=== PATIENT | male | born 1970 | race Caucasian/White ===

== ENCOUNTER 2017-10-10 10:44 | Emergency (ER) | payer OTHER, SELFPAY ==
[2017-10-10 12:10] VITALS: BP 159/83; PULSE 71; RESP 22; TEMP 36.8; O2SAT 97; BMI 28.0
--- NOTE | 2017-10-10 12:27 | HMH.EDUTC ---
[facility] [place] Disposition Clinical Impression: Toe pain Qualifiers: Laterality: right Qualified Code(s): M79.674 - Pain in right toe(s) Disposition: Home, Self-Care Condition on Discharge: Good Additional Instructions: Go straight to Dr Moore office as she will see you now Follow up with family doctor REturn if needed Referrals: Destini Moore DPM [Physician] - Time of Disposition: 13:06 Medical Decision Making Vital Signs: 10/10/17 12:10 Temperature 98.2 F Temperature Source Temporal Artery Scan Pulse Rate [Right Radial] 71 Respiratory Rate 22 Blood Pressure [Right Arm] 159/83 Blood Pressure Mean [Right Arm] 108 Blood Pressure Source [Right Arm] Automatic Cuff Blood Pressure Position [Right Arm] Sitting 02 Sat by Pulse Oximetry 97 Oxygen Delivery Method Room Air Orders (Tests/Meds): ORDERS Category Date Time Status XR foot wt bearing RT 2V Stat Exams 10/10/17 12:34 Taken - Radiology Data #1 Image(s): Foot/Toes Image Reviewed: Yes I reviewed the patient's radiology image - Physician Consults Time: 12:30 Reason -: Podiatry Eval/Care Comment/Response: Called Dr Moore office awaiting to hear from her if she can see patient for swollen, red second toe on right foot, Advised to obtain foot xray weight bearing and they would call back if they could see him Additional Consult: Dr Moore office called back at 1pm advised for patient to come to office - Sam Inquiry Pt receiving controlled substance: No Sam was queried for this patient: No [facility] HPI - General Stated complaint: 2nd toe on right foot,pain no ao Mode of Arrival: Family Vehicle Source of Information: Patient Limitations: No Limitations Description of Symptoms (Recalled from Triage Doc. by RN): PT STATES THAT HIS SECOND TOE ON HIS RIGHT FOOT HAS BEEN SWOLLEN AND PAINFUL FOR 1 WEEK. PT BROKE THE TOE 2 YRS AGO. HEENT Symptoms (Recalled from RN notes): No Resp Symptoms (Recalled from RN notes): No Skin Symptoms (Recalled from RN notes): No MS Symptoms (Recalled from RN notes): Yes (SECOND TOE ON RIGHT FOOT SWOLLEN AND PAINFUL) Functional Status (Recalled from RN notes): NA - History of Present Illness Provider Complaint: Patient state that he had broken the toe about 2 years ago and the other day he trimmed his toe nails and ever since he has been having redness and swelling ever since and pain when he tries to put on a sock or shoe State that he doesn't recall doing anything to injure the toe or if he may have an infection - Related Data Allergies Allergy/AdvReac Type Severity Reaction Status Date / Time No Known Allergies Allergy Verified 10/10/17 11:20 - Worker's Comp Is this a Worker's Comp case?: No [facility] History I have reviewed the patient's past medical history: Yes Medical History: Denies:: Cancer, Diabetes Mellitus Type 1, Diabetes Mellitus Type 2, MRSA Amputation: No Fractures: No - *Social History Smoking Status: Current every day smoker Tobacco Type: cigarettes, e-cigarettes Alcohol Intake: never - Psychiatric History Expresses thoughts of harming self/others: None Suicide Plan Description: No Plan ROS Obtained: Yes All systems reviewed & no additional complaints Physical Exam - General General appearance: alert, in no apparent distress - ENT ENT exam: Present: normal exam, normal oropharynx, mucous membranes moist, TM's normal bilaterally, normal external ear exam - Respiratory Respiratory exam: Present: normal lung sounds bilaterally. Absent: respiratory distress - Cardiovascular Cardiovascular exam: Present: regular rate, normal rhythm. Absent: JVD - Extremities Exam Extremities exam: Present: tenderness, normal capillary refill, other (swelling, redness, tenderness noted in second toe right foot) - Neurological Exam Neurological exam: Present: alert, oriented X3
--- NOTE | 2017-10-10 12:30 | ED_ITS ---
[facility] [place] Clinical Impression: Toe pain Qualifiers: Laterality: right Qualified Code(s): M79.674 - Pain in right toe(s) Disposition: Home, Self-Care Condition on Discharge: Good Additional Instructions: Go straight to Dr Moore office as she will see you now Follow up with family doctor REturn if needed Referrals: Destini Moore DPM [Physician] - Time of Disposition: 13:06 Medical Decision Making Vital Signs: 10/10/17 12:10 Temperature 98.2 F Temperature Source Temporal Artery Scan Pulse Rate [Right Radial] 71 Respiratory Rate 22 Blood Pressure [Right Arm] 159/83 Blood Pressure Mean [Right Arm] 108 Blood Pressure Source [Right Arm] Automatic Cuff Blood Pressure Position [Right Arm] Sitting 02 Sat by Pulse Oximetry 97 Oxygen Delivery Method Room Air Orders (Tests/Meds): ORDERS Category Date Time Status XR foot wt bearing RT 2V Stat Exams 10/10/17 12:34 Taken - Radiology Data #1 Image(s): Foot/Toes Image Reviewed: Yes I reviewed the patient's radiology image - Physician Consults Time: 12:30 Reason -: Podiatry Eval/Care Comment/Response: Called Dr Moore office awaiting to hear from her if she can see patient for swollen, red second toe on right foot, Advised to obtain foot xray weight bearing and they would call back if they could see him Additional Consult: Dr Moore office called back at 1pm advised for patient to come to office - Sam Inquiry Pt receiving controlled substance: No Sam was queried for this patient: No [facility] [place]PI - General Stated complaint: 2nd toe on right foot,pain no ao Mode of Arrival: Family Vehicle Source of Information: Patient Limitations: No Limitations Description of Symptoms (Recalled from Triage Doc. by RN): PT STATES THAT HIS SECOND TOE ON HIS RIGHT FOOT HAS BEEN SWOLLEN AND PAINFUL FOR 1 WEEK. PT BROKE THE TOE 2 YRS AGO. HEENT Symptoms (Recalled from RN notes): No Resp Symptoms (Recalled from RN notes): No Skin Symptoms (Recalled from RN notes): No MS Symptoms (Recalled from RN notes): Yes (SECOND TOE ON RIGHT FOOT SWOLLEN AND PAINFUL) Functional Status (Recalled from RN notes): NA - History of Present Illness Provider Complaint: Patient state that he had broken the toe about 2 years ago and the other day he trimmed his toe nails and ever since he has been having redness and swelling ever since and pain when he tries to put on a sock or shoe State that he doesn't recall doing anything to injure the toe or if he may have an infection - Related Data Allergies Allergy/AdvReac Type Severity Reaction Status Date / Time No Known Allergies Allergy Verified 10/10/17 11:20 - Worker's Comp Is this a Worker's Comp case?: No [facility] History I have reviewed the patient's past medical history: Yes Medical History: Denies:: Cancer, Diabetes Mellitus Type 1, Diabetes Mellitus Type 2, MRSA Amputation: No Fractures: No - *Social History Smoking Status: Current every day smoker Tobacco Type: cigarettes, e-cigarettes Alcohol Intake: never - Psychiatric History Expresses thoughts of harming self/others: None Suicide Plan Description: No Plan ROS Obtained: Yes All systems reviewed & no additional complaints Physical Exam - General General appearance: alert, in no apparent distress - ENT ENT exam: Present: normal exam, normal oroph
--- NOTE | 2017-10-10 12:34 | XR_ITS ---
XR foot wt bearing RT 2V Ordering Physician: Solitario Rojas MD Patient Age: 46 years: Male HISTORY: ITS.REASON: swelling second toe The patient TECHNIQUE: 3 views right foot weightbearing AP oblique and crosstable lateral COMPARISON :None FINDINGS No fracture nor subluxation nor dislocation . Normal relationships. Bones are well mineralized and joint spaces are well-maintained with no erosions. Adequate plantar arch. Very minimal spurring at insertion of Achilles tendon Attention directed second toe reveals no fracture or foreign body or lesion here on the current radiograph there is mild soft tissue swelling noted. IMPRESSION: =- No fracture nor dislocation. Specifically note that Osseous structures second toe are intact. Mild soft tissue swelling second toe. No radiopaque foreign body.
== END 2017-10-10 13:09 | disposition home or self-care (01) ==
PROVIDERS: Emergency Provider Emergency Medicine
DX: M79.674 Pain in right toe(s) (principal); F17.210 Nicotine dependence, cigarettes, uncomplicated
CPT/HCPCS: 73620; 99202; 99282

== ENCOUNTER → 2019-01-01 12:14 | Outpatient (CLI) | payer OTHER, SELFPAY ==
[2019-01-01 12:29] LABS: Basophils # 0.1 K/mm3 (0-0.2); Basophils % 0.5 % (0.1-2.0); Eosinophils # 0.1 K/mm3 (0.0-0.4); Eosinophils % 1.5 % (0.1-12.0); Hematocrit 41.3 % (42.0-52.0); Hemoglobin 14.1 g/dL (14.1-18.0); Lymphocytes # 2.6 K/mm3 (0.7-4.5); Lymphocytes % 26.3 % (10-50); Mean Corpuscular HGB Conc 34.1 g/dL (31.8-35.4); Mean Corpuscular Hemoglobin 30.4 pg (27.0-31.2); Mean Corpuscular Volume 89.2 fl (80-94); Mean Platelet Volume 8.4 fl (7.4-10.4); Monocytes # 0.8 K/mm3 (0.1-1.0); Monocytes % 7.8 % (1.7-9.3); Neutrophils # 6.2 K/mm3 (1.8-7.8); Platelet Count 211 K/mm3 (142-424); Red Blood Count 4.62 M/mm3 (4.60-6.20); Red Cell Distribution Width 13.5 % (11.5-17.5); White Blood Count 9.7 K/mm3 (4.8-10.8)
--- NOTE | 2019-01-01 12:36 | XR_ITS ---
XR chest 2V HISTORY: ITS.REASON: TOBACCO USE ORDERING PHYSICIAN: Lalita Barraza MD PATIENT AGE: 48 years COMPARISON: None FINDINGS: Unremarkable cardiovascular structures. There are faint interstitial changes which may related to smoking-related lung disease/COPD. In the left upper lobe there is a small parenchymal irregular opacity measuring 13 x 8 mm. This could be due to an area of parenchymal scarring or developing nodule. There are no previous studies available for comparison. Chest CT with contrast may be of further value. No acute bony findings. There is overall increased density of the right lung compared to the left. This however is felt to be technical in nature. IMPRESSION: COPD/smoking related lung disease with possible developing nodule in the left upper lobe which may be better evaluated with CT
[2019-01-01 12:37] LABS: INR 0.94 (0.9-1.1); Prothrombin Time 9.7 seconds (9.4-11.8)
[2019-01-01 13:18] LABS: Alanine Aminotransferase 24 U/L (12-78); Albumin Level 2.9 gm/dL (3.4-5.0); Albumin/Globulin Ratio 0.9 (1.1-1.8); Alkaline Phosphatase 106 U/L (46-116); Anion Gap 11.3 mEq/L (5-15); Aspartate Amino Transferase 21 U/L (15-37); Bilirubin,Total 0.3 mg/dL (0.2-1.0); Blood Urea Nitrogen 13 mg/dL (7-18); Calcium 8.5 mg/dL (8.5-10.1); Carbon Dioxide 30 mmol/L (21.0-32.0); Chloride 105 mmol/L (98-107); Creatinine,Serum 1.01 mg/dL (0.70-1.30); Estimated Glomerular Filt Rate 78 ml/min (>60); GFR (African American) 95 ML/MIN (>60); Globulin 3.1 gm/dl (1.3-3.2); Glucose 93 mg/dL (74-106); Potassium 4.3 mmoL/L (3.5-5.1); Sodium 142 mmol/L (136-145)
--- NOTE | 2019-01-01 14:04 | CT_ITS ---
CT knee LT wo con INDICATION: Pain following injury, evaluate tibial plateau fracture with 3-D loop ITS.REASON: without contrast ORDERING PHYSICIAN: Lalita Barraza MD PATIENT AGE: 48 years COMPARISON: None TECHNIQUE: Axial images are obtained without contrast. Sagittal and coronal reformatted images are reviewed as well. All CT scans at the facility use one or more dose reduction, viz: automated exposure control, ma/kV adjustment per patient size (including targeted exams where dose is matched to indication, i.e. head), or iterative reconstruction technique. FINDINGS: There is a comminuted and depressed lateral tibial plateau fracture. There is a fragment which measures approximately 2 x 2 centimeters which is depressed into the proximal aspect of the tibia laterally. This fragment is depressed by approximately 17 mm. The lateral tibial plateau fracture has an oblique course anteriorly. There is some comminution of fracture fragments posteriorly. The posterior aspect of the fracture extends into the tibiofibular articulation. There is diffuse soft tissue swelling about the knee with a suprapatellar effusion noted. MRI needed to determine the integrity of the ligaments and menisci. IMPRESSION: 1. Depressed and comminuted lateral tibial plateau fracture as described above with soft tissue swelling and knee joint effusion
== END ==
PROVIDERS: Visit Provider Orthopaedic Surgery
DX: Z01.818 Encounter for other preprocedural examination (principal); S82.143A Displaced bicondylar fracture of unspecified tibia, initial encounter for closed fracture
CPT/HCPCS: 36415; 71046; 73700; 80053; 85025; 85610; 93005

== ENCOUNTER → 2019-01-05 10:52 | Outpatient (CLI) | payer OTHER, SELFPAY ==
--- NOTE | 2019-01-05 11:23 | CT_ITS ---
CT chest wo/w con HISTORY: Follow-up abnormal chest, solitary pulmonary nodule, tobacco use with abnormal chest [ ITS.REASON: lung nodule ORDERING PHYSICIAN: Lalita Barraza MD PATIENT AGE: 48 years COMPARISON: 01/01/2019 Technique: Axial images obtained without and following the administration of 75 mL of Optiray 350 . Sagittal, and coronal reformatted images are also generated and reviewed. All CT scans at the facility use one or more dose reduction, viz: automated exposure control, ma/kV adjustment per patient size (including targeted exams where dose is matched to indication, i.e. head), or iterative reconstruction technique. FINDINGS: Unenhanced images demonstrate coronary artery calcifications. There are scattered calcified lymph nodes within the mediastinum and right hilum. No mediastinal or hilar mass or adenopathy is evident. No evidence of aortic aneurysm. Normal heart size without evidence of pericardial effusion. There are paraseptal and centrilobular emphysematous changes. There is a calcified nodule within the left upper lobe anteriorly which corresponds to the radiographic abnormality. There is a 3 mm noncalcified nodule in the right upper lobe anteriorly series 3 #47 there are fibrotic changes in the lung bases. Calcified nodules are noted in the right lower lobe posteriorly. There is a 6 x 3 mm noncalcified nodule in the right lower lobe series 3 #49. No effusions or infiltrates. There are few scattered small axillary lymph nodes. No acute bony findings. There is mild bilateral mastoid IMPRESSION: 1. Radiographic abnormality corresponds to a calcified nodule consistent with a benign granuloma. No further follow-up needed for this nodule. 2. There are 2 noncalcified nodules on the right one in the upper lobe at 3 mm and one in the lower lobe 6 x 3 mm. Suggest 12 month follow-up this patient with smoking history regarding these nodules. 3. Centrilobular paraseptal emphysema. Coronary artery calcifications are also present
--- NOTE | 2019-01-05 11:58 | HMH.ITSHM ---
Current Home Medications as stated by this patient Efrain Norma Paul or indirect sales representative. []PERCOCET
== END ==
PROVIDERS: Visit Provider Orthopaedic Surgery
DX: R91.1 Solitary pulmonary nodule (principal)
CPT/HCPCS: 71270; Q9967

== ENCOUNTER 2019-01-10 13:00 | Inpatient (IN) ==
[2019-01-10 15:35] LABS: Basophils # 0.1 K/mm3 (0-0.2); Basophils % 0.5 % (0.1-2.0); Eosinophils # 0.1 K/mm3 (0.0-0.4); Eosinophils % 0.8 % (0.1-12.0); Hematocrit 36.7 % (42.0-52.0); Hemoglobin 12.5 g/dL (14.1-18.0); Lymphocytes # 2.1 K/mm3 (0.7-4.5); Lymphocytes % 15.7 % (10-50); Mean Corpuscular HGB Conc 34.2 g/dL (31.8-35.4); Mean Corpuscular Hemoglobin 30.3 pg (27.0-31.2); Mean Corpuscular Volume 88.7 fl (80-94); Monocytes # 1.2 K/mm3 (0.1-1.0); Monocytes % 8.8 % (1.7-9.3); Neutrophils # 9.9 K/mm3 (1.8-7.8); Neutrophils % 74.3 % (37.0-80.0); Platelet Count 423 K/mm3 (142-424); Red Blood Count 4.13 M/mm3 (4.60-6.20); White Blood Count 13.4 K/mm3 (4.8-10.8)
[2019-01-10 15:53] LABS: Albumin/Globulin Ratio 0.4 (1.1-1.8); Anion Gap 11.3 mEq/L (5-15); Bilirubin,Total 0.3 mg/dL (0.2-1.0); Calcium 8.8 mg/dL (8.5-10.1); Potassium 4.3 mmoL/L (3.5-5.1)
[2019-01-10 16:00] LABS: C-Reactive Protein 13.9 mg/L (0.0-0.9)
--- NOTE | 2019-01-10 16:11 | Pharmacy Consult Notes ---
[facility] Pharmacy VTE Monitoring - Patient Demographics Admission date: 01/10/19 Report Date: 01/10/19 Time: 16:06 Allergies/Adverse Reactions: Patient Allergies No Known Allergies Allergy (Verified 01/10/19 14:27) Height: 1.75 m Weight: 88.167 kg - VTE Risk Labs: VTE Related Lab Results Hgb 12.5 g/dL (14.1-18.0) L 01/10/19 15:25 Hct 36.7 % (42.0-52.0) L 01/10/19 15:25 Plt Count 423 K/mm3 (142-424) 01/10/19 15:25 BUN 15 mg/dL (7-18) 01/10/19 15:25 Creatinine 1.03 mg/dL (0.70-1.30) 01/10/19 15:25 Estimated Creat Clear 107 mL/min (50-200) 01/10/19 15:25 Was VTE Risk Assessment Performed: Yes Clinical Trial Participant: No - Prophylaxis VTE Prophylaxis Ordered?: Yes Types of VTE Prophylaxis: IPCS Knee High
--- NOTE | 2019-01-10 16:22 | Pharmacy Consult Notes ---
- Pharmacy Consult Date: 01/10/19 Time: 16:19 Referring provider: ALEXI Reason for Consult:: VANCOMYCIN DOSING AND FOLLOWUP Allergies and ADEs:: Allergies Allergy/AdvReac Type Severity Reaction Status Date / Time No Known Allergies Allergy Verified 01/10/19 14:27 Home Medications:: Home Medications Medication Instructions Recorded Confirmed Type oxycodone 5 mg capsule 5 mg PO Q6HP PRN 01/05/19 01/10/19 History sulfamethoxazole 800 1 tab PO DAILY 7 Days #7 tab 01/05/19 01/10/19 Rx mg-trimethoprim 160 mg tablet Height: 1.75 m Weight: 88.167 kg Laboratory Results:: Laboratory Results - last 24 hr 01/10/19 15:25: WBC 13.4 H, RBC 4.13 L, Hgb 12.5 L, Hct 36.7 L, MCV 88.7, MCH 30.3, MCHC 34.2, RDW 13.0, Plt Count 423, MPV 8.0, Neut % (Auto) 74.3, Lymph % (Auto) 15.7, Gilchrist % (Auto) 8.8, Eos % (Auto) 0.8, Baso % (Auto) 0.5, Neut # (Auto) 9.9 H, Lymph # (Auto) 2.1, Gilchrist # (Auto) 1.2 H, Eos # (Auto) 0.1, Baso # (Auto) 0.1 01/10/19 15:25: Sodium 129 L, Potassium 4.3, Chloride 94 L, Carbon Dioxide 28, Anion Gap 11.3, BUN 15, Creatinine 1.03, Estimated Creat Clear 107, Estimated GFR 76, Est GFR ( Amer) 92, Glucose 102, Calcium 8.8, Total Bilirubin 0.3, AST 129 H, ALT 117 H, Alkaline Phosphatase 134 H, C-Reactive Protein 13.9 H , Total Protein 7.0, Albumin 2.0 L, Globulin 5.0 H, Albumin/Globulin Ratio 0.4 L 01/10/19 15:25: ESR > 120 H Medical History: Denies:: Asthma, Cancer, Chronic Obstructive Pulmonary Disease (COPD), Cerebrovascular Accident, Diabetes Mellitus Type 1, Diabetes Mellitus Type 2, Gastroesophageal Reflux Disease(GERD), Hyperlipidemia, Hypertension, Internal Pacemaker, Kidney Stones, MRSA, Myocardial Infarction, Renal Disease, Renal Insufficiency, Seizures Assessment and Plan - Assessment and plan all Dx Assessment and Plan for all problems:: PT ADMITTED FOR TREATMENT OF POSSIBLE POST OP SURGICAL SITE INFECTION WITH IV A NTIBIOTICS. PT STARTED IN ZOSYN 2.25GM AND VANCOMYCIN EMPIRICALLY. WILL START VANCOMYCIN 1750MG (20MG/KG) EVERY 12 HOURS. WILL FOLLOW DAILY AND ADJUST NECESSARY. THANK YOU.
--- NOTE | 2019-01-10 21:44 | History & Physical Report ---
*Admission Date: 01/10/19 *Chief complaint: LLE pain + erythema *History of present illness: 48yo M 1 week s/p ORIF L tibial plateau fracture admitted from clinic this afternoon with increasing erythema around the surgical site despite being on oral Bactrim for the last 5-6 days. He denies fevers or chills at home, no drainage from the incision, but has a foot drop present since surgery. Sensation intact but quality diminished across the dorsum of the foot. He is a heavy smoker, 2-2.5 ppd. Effusion present in the knee, which was aspirated in clinic and sent for cell count, gram stain and culture; aspiration site was medial, far from the surgical incision and prepped with chlorhexidine. [facility] History I have reviewed the patient's past medical history: Yes Medical History: Denies:: Asthma, Cancer, Chronic Obstructive Pulmonary Disease (COPD), Cerebrovascular Accident, Diabetes Mellitus Type 1, Diabetes Mellitus Type 2, Gastroesophageal Reflux Disease(GERD), Hyperlipidemia, Hypertension, Internal Pacemaker, Kidney Stones, MRSA, Myocardial Infarction, Renal Disease, Renal Insufficiency, Seizures *Have you ever received a pneumonia vaccine?: No *Have you received a flu vaccine this season?: No Other Medical History: Denies: Arthritis, Blood Transfusion Reaction Laterality Cases: Left: Other Other Surgeries: Yes: No Previous Surgery. No: Pacemaker Amputation: No Fractures: Yes (TOE) - *Social History Smoking Status: Current every day smoker Tobacco Type: cigarettes # Packs/Day (cigarettes): 2 Alcohol Intake: former Alcohol Intake Frequency:: 0-2 drinks per day Substance Use Type: denies use *Occupational Status:: employed Housing: house Household Members: none *Travel in the last 8 weeks: None - Psychiatric History Expresses thoughts of harming self/others: None Suicide Plan Description: No Plan Family Hx:: No significant family history Review of Systems - Review of Systems Review of systems:: pertinent systems reviewed and negative unless documented below Meds Home Medications Medication Instructions Recorded Confirmed Type oxycodone 5 mg capsule 5 mg PO Q6HP PRN 01/05/19 01/10/19 History sulfamethoxazole 800 1 tab PO DAILY 7 Days #7 tab 01/05/19 01/10/19 Rx mg-trimethoprim 160 mg tablet Allergies Allergy/AdvReac Type Severity Reaction Status Date / Time No Known Allergies Allergy Verified 01/10/19 14:27 Exam Vital signs and Labs for Last 24 Hours: Temp Pulse Resp BP Pulse Ox 98.3 F 86 18 123/72 97 01/10/19 20:00 01/10/19 20:00 01/10/19 20:00 01/10/19 20:00 01/10/19 20:00 Laboratory Results - last 24 hr 01/10/19 15:25: WBC 13.4 H, RBC 4.13 L, Hgb 12.5 L, Hct 36.7 L, MCV 88.7, MCH 30.3, MCHC 34.2, RDW 13.0, Plt Count 423, MPV 8.0, Neut % (Auto) 74.3, Lymph % (Auto) 15.7, Carver % (Auto) 8.8, Eos % (Auto) 0.8, Baso % (Auto) 0.5, Neut # (Auto) 9.9 H, Lymph # (Auto) 2.1, Carver # (Auto) 1.2 H, Eos # (Auto) 0.1, Baso # (Auto) 0.1 01/10/19 15:25: Sodium 129 L, Potassium 4.3, Chloride 94 L, Carbon Dioxide 28, Anion Gap 11.3, BUN 15, Creatinine 1.03, Estimated Creat Clear 107, Estimated GFR 76, Est GFR ( Amer) 92, Glucose 102, Calcium 8.8, Total Bilirubin 0.3, AST 129 H, ALT 117 H, Alkaline Phosphatase 134 H, C-Reactive Protein 13.9 H , Total Protein 7.0, Albumin 2.0 L, Globulin 5.0 H, Albumin/Globulin Ratio 0.4 L 01/10/19 15:25: ESR > 120 H I & O for Last 24 hours: Intake & Output 01/08/19 01/09/19 01/10/19 01/11/19 11:59 11:59 11:59 11:59 Intake Total 785 / 785 Output Total 550 / 550 Balance 235 / 235 Weight 194 lb 6 oz Microbiology Reports for the Last 24 Hours: Microbiology 01/10/19 Unknown Synovial Fluid Gram Stain - Final - *Routine Extremities Exam Comments: L knee with laterally based incision s/p ORIF tibial plateau incision with increasing erythema around margin, no wound necrosis no active drainage but scant yellow fluid on dressing no palpable fluctuance, no apparent fluid collections near the surgical site mild effusion L knee mild erythema over anterior ankle, non-tender persistent foot drop LLE; intact plantar flexion with 5/5 strength sensation intact but quality diminished across dorsum of the L foot palpable pedal pulses LLE, foot warm Results - Labs Result Diagrams: 01/10/19 15:25 01/10/19 15:25 Labs: Abnormal lab results 01/10/19 01/10/19 01/10/19 Range/Units 15:25 15:25 15:25 WBC 13.4 H (4.8-10.8) K/mm3 RBC 4.13 L (4.60-6.20) M/mm3 Hgb 12.5 L (14.1-18.0) g/dL Hct 36.7 L (42.0-52.0) % Neut # (Auto) 9.9 H (1.8-7.8) K/mm3 Carver # (Auto) 1.2 H (0.1-1.0) K/mm3 ESR > 120 H (0-15) mm/hr Sodium 129 L (136-145) mmol/L Chloride 94 L (98-107) mmol/L AST 129 H (15-37) U/L ALT 117 H (12-78) U/L Alkaline Phosphatase 134 H (46-116) U/L C-Reactive Protein 13.9 H (0.0-0.9) mg/L Albumin 2.0 L (3.4-5.0) gm/dL Globulin 5.0 H (1.3-3.2) gm/dl Albumin/Globulin Ratio 0.4 L (1.1-1.8) H & H 01/10/19 Range/Units 15:25 Hgb 12.5 L (14.1-18.0) g/dL Hct 36.7 L (42.0-52.0) % All other labs normal. - Diagnostic results Knee x-ray: image reviewed (good alignment/reduction of tibial plateau fx s/p ORIF with hardware well-positioned ) Assessment and Plan (1) Fracture, tibial plateau Current visit: No Status: Acute Qualifiers: Encounter type: initial encounter Fracture type: closed Laterality: left Qualified Code(s): S82.142A - Displaced bicondylar fracture of left tibia, initial encounter for closed fracture Category: Medical Code(s): S82.143A - Displaced bicondylar fracture of unspecified tibia, initial encounter for closed fracture (2) Cellulitis Current visit: Yes Status: Acute Category: Medical Code(s): L03.90 - Cellulitis, unspecified - Assessment and plan all Dx Assessment and Plan for all problems:: 48yo M 1 week s/p ORIF L tibial plateau fracture, with clinical appearance of cellulitis; r/o deeper infection around hardware and/or knee joint -- fluid studies pending; f/u culture -- vanc + zosyn started (after knee aspirated) -- ok to eat tonight, but NPO after midnight in the event surgery is required tomorrow -- labs ordered on admission: CBC, CMP, ESR, CRP -- pain meds ordered -- elevate LLE, apply ice PRN
--- NOTE | 2019-01-11 09:31 | Progress Note ---
Subjective Date: 01/11/19 Time: 09:00 Principal diagnosis: wound infection L tibial plateau Interval history: The patient feels well this morning, no fevers or chills. No drainage from wound reported overnight. Has been NPO since midnight. PN: Obj Ex Vital signs: Temp Pulse Resp BP Pulse Ox 98.1 F 79 17 123/46 L 95 01/11/19 08:00 01/11/19 08:00 01/11/19 08:00 01/11/19 08:00 01/11/19 08:00 - Routine Extremities Exam Comments: L knee with laterally based incision s/p ORIF tibial plateau incision with increasing erythema around margin, no wound necrosis no active drainage but scant yellow fluid on dressing no palpable fluctuance, no apparent fluid collections near the surgical site mild effusion L knee mild erythema over anterior ankle, non-tender persistent foot drop LLE; intact plantar flexion with 5/5 strength sensation intact but quality diminished across dorsum of the L foot palpable pedal pulses LLE, foot warm Progress Note: A&P (1) Fracture, tibial plateau Status: Acute Current Visit: No (2) Cellulitis Status: Acute Current Visit: Yes (3) Septic arthritis of knee, left Status: Acute Current Visit: Yes Assessment and Plan for All Diagnoses:: 48yo M 1 week s/p ORIF L tibial plateau fx with cellulitis/wound infection and fluid aspirate from knee suspicious for septic arthritis -- WBC, ESR and CRP all elevated, joint aspirate with GPC on gram stain; rather than waiting for culture to be finalized I am taking him urgently to the OR this morning for washout. I will take intra-operative cultures and continue IV antibiotics; hardware will be retained. After bony union, hardware may need to be removed at a later date. Continue vanc/zosyn for now, will tailor antibiotics pending culture results. -- I discussed the plan with the patient, who is in agreement with the procedure. Risks of the procedure were discussed and informed consent obtained; he will be taken to the OR now for I&D.
--- NOTE | 2019-01-11 12:26 | Progress Note ---
[facility] Anesthesia Record Part I Intake, IV Amount: 1,300 Estimated blood loss (mL): 50 Urine output (mL): 0 Blood Pressure: 143/75 SaO2: 95 Pulse Rate: 93 Respiratory Rate: 16 Temperature: 97.4 F Patient is:: Drowsy, Stable Stable to PACU at:: 12:20
--- NOTE | 2019-01-11 12:26 | Progress Note ---
[facility] Anesthesia Checklist - Patient Identification Patient Identification: Arm Band - Structural Data Admitted From: Inpatient Planned Operative Procedure/s: left knee arthroscopy, I&D left tibial plateau wound Consent for Planned Operative Procedure(s) Verified: Yes Verified Documents: Surgical Consent, History and Physical - NPO Status Verified Time NPO: 00:00 - Airway Assessment C-Spine Mobility Assessed: Yes (mp2) TMJ Mobility Assessed: Yes Dentition: Poor Dentition - Neurological Assessment Level of Consciousness: Awake, Alert - Anesthesia Plan Anesthesia Risk discussed: Yes Anesthesia Plan: Verified ASA Class: II Anesthesia Type: General [facility] History I have reviewed the patient's past medical history: Yes Medical History: Denies:: Asthma, Cancer, Chronic Obstructive Pulmonary Disease (COPD), Cerebrovascular Accident, Diabetes Mellitus Type 1, Diabetes Mellitus Type 2, Gastroesophageal Reflux Disease(GERD), Hyperlipidemia, Hypertension, Internal Pacemaker, Kidney Stones, MRSA, Myocardial Infarction, Renal Disease, Renal Insufficiency, Seizures *Have you ever received a pneumonia vaccine?: No *Have you received a flu vaccine this season?: No Other Medical History: Denies: Arthritis, Blood Transfusion Reaction Laterality Cases: Left: Other Other Surgeries: No: Pacemaker Amputation: No Fractures: Yes (TOE) - *Social History Smoking Status: Current every day smoker Tobacco Type: cigarettes # Packs/Day (cigarettes): 2 Alcohol Intake: former Alcohol Intake Frequency:: 0-2 drinks per day Substance Use Type: denies use *Occupational Status:: employed Housing: house Household Members: none *Travel in the last 8 weeks: None - Psychiatric History Expresses thoughts of harming self/others: None Suicide Plan Description: No Plan Family Hx:: No significant family history
--- NOTE | 2019-01-11 12:26 | Progress Note ---
[facility] Anesthesia Record Part II Discharge Time: 12:50 Destination: 2nd floor PACU nurse assessment reviewed?: Yes Patient Condition:: Good Anesthesia Complications:: None Swallowing reflex intact?: Yes Cyanosis?: No
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
[2019-01-12 04:50] LABS: Anion Gap 12.1 mEq/L (5-15); Calcium 8.6 mg/dL (8.5-10.1); Potassium 4.1 mmoL/L (3.5-5.1)
[2019-01-12 04:58] LABS: C-Reactive Protein 9.3 mg/L (0.0-0.9)
[2019-01-12 05:04] LABS: Basophils # 0.1 K/mm3 (0-0.2); Basophils % 0.6 % (0.1-2.0); Eosinophils # 0.1 K/mm3 (0.0-0.4); Eosinophils % 1.1 % (0.1-12.0); Hematocrit 31.7 % (42.0-52.0); Hemoglobin 10.9 g/dL (14.1-18.0); Lymphocytes # 2.3 K/mm3 (0.7-4.5); Lymphocytes % 20.9 % (10-50); Mean Corpuscular HGB Conc 34.5 g/dL (31.8-35.4); Mean Corpuscular Hemoglobin 30.3 pg (27.0-31.2); Mean Platelet Volume 7.5 fl (7.4-10.4); Monocytes # 0.9 K/mm3 (0.1-1.0); Monocytes % 8.6 % (1.7-9.3); Neutrophils # 7.4 K/mm3 (1.8-7.8); Neutrophils % 68.8 % (37.0-80.0); Platelet Count 422 K/mm3 (142-424); Red Blood Count 3.61 M/mm3 (4.60-6.20); White Blood Count 10.8 K/mm3 (4.8-10.8)
[2019-01-12 05:05] LABS: Vancomycin,Trough 18.4 mcg/ml (10.0-20.0)
--- NOTE | 2019-01-12 09:05 | Pharmacy Consult Notes ---
- Pharmacy Consult Date: 01/12/19 Time: 09:04 Referring provider: DR. MORRIS Reason for Consult:: VANCOMYCIN TROUGH LEVEL Allergies and ADEs:: Allergies Allergy/AdvReac Type Severity Reaction Status Date / Time No Known Allergies Allergy Verified 01/10/19 14:27 Home Medications:: Home Medications Medication Instructions Recorded Confirmed Type sulfamethoxazole 800 1 tab PO DAILY 7 Days #7 tab 01/05/19 01/10/19 Rx mg-trimethoprim 160 mg tablet Oxycodone HCl/Acetaminophen 1 - 2 tab PO Q6H PRN 01/11/19 01/11/19 History [Percocet 5/325mg tablet] Height: 1.75 m Weight: 95.793 kg Laboratory Results:: Laboratory Results - last 24 hr 01/12/19 04:30: C-Reactive Protein 9.3 H D, Vancomycin Trough 18.4 01/12/19 04:30: WBC 10.8, RBC 3.61 L, Hgb 10.9 L, Hct 31.7 L, MCV 88.0, MCH 30.3, MCHC 34.5, RDW 13.0, Plt Count 422, MPV 7.5, Neut % (Auto) 68.8, Lymph % (Auto) 20.9, [place] % (Auto) 8.6, Eos % (Auto) 1.1, Baso % (Auto) 0.6, Neut # (Auto) 7.4, Lymph # (Auto) 2.3, [place] # (Auto) 0.9, Eos # (Auto) 0.1, Baso # (Auto) 0.1 01/12/19 04:30: Sodium 134 L, Potassium 4.1, Chloride 100, Carbon Dioxide 26, Anion Gap 12.1, BUN 11 D, Creatinine 0.99, Estimated Creat Clear 121, Estimated GFR 80, Est GFR ( Amer) 97, Glucose 102, Calcium 8.6 Medical History: Denies:: Asthma, Cancer, Chronic Obstructive Pulmonary Disease (COPD), Cerebrovascular Accident, Diabetes Mellitus Type 1, Diabetes Mellitus Type 2, Gastroesophageal Reflux Disease(GERD), Hyperlipidemia, Hypertension, Internal Pacemaker, Kidney Stones, MRSA, Myocardial Infarction, Renal Disease, Renal Insufficiency, Seizures Assessment and Plan (1) Fracture, tibial plateau Current visit: No Status: Acute Qualifiers: Encounter type: initial encounter Fracture type: closed Laterality: left Qualified Code(s): S82.142A - Displaced bicondylar fracture of left tibia, initial encounter for closed fracture Category: Medical Code(s): S82.143A - Displaced bicondylar fracture of unspecified tibia, initial encounter for closed fracture (2) Cellulitis Current visit: Yes Status: Acute Category: Medical Code(s): L03.90 - Cellulitis, unspecified (3) Septic arthritis of knee, left Current visit: Yes Status: Acute Category: Medical Code(s): M00.9 - Pyogenic arthritis, unspecified - Assessment and plan all Dx Assessment and Plan for all problems:: BASED ON PATIENT FACTORS AND VANCOMYCIN TROUGH LEVEL, RECOMMEND CONTINUING VANC OMYCIN 1750 MG IV Q12H. PHARMACY WILL CONTINUE TO MONITOR DAILY AND ADJUST APPROPRIATE.
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
[2019-01-13 06:36] LABS: Basophils % 0.4 % (0.1-2.0); Eosinophils # 0.1 K/mm3 (0.0-0.4); Eosinophils % 0.9 % (0.1-12.0); Hematocrit 31.3 % (42.0-52.0); Hemoglobin 10.9 g/dL (14.1-18.0); Lymphocytes # 1.7 K/mm3 (0.7-4.5); Lymphocytes % 17.2 % (10-50); Mean Corpuscular HGB Conc 34.9 g/dL (31.8-35.4); Mean Corpuscular Hemoglobin 31.3 pg (27.0-31.2); Mean Corpuscular Volume 89.7 fl (80-94); Mean Platelet Volume 7.6 fl (7.4-10.4); Monocytes # 0.9 K/mm3 (0.1-1.0); Monocytes % 9.3 % (1.7-9.3); Neutrophils # 7.1 K/mm3 (1.8-7.8); Neutrophils % 72.2 % (37.0-80.0); Platelet Count 448 K/mm3 (142-424); Red Blood Count 3.49 M/mm3 (4.60-6.20); Red Cell Distribution Width 12.9 % (11.5-17.5); White Blood Count 9.9 K/mm3 (4.8-10.8)
[2019-01-13 06:47] LABS: Anion Gap 12.1 mEq/L (5-15); C-Reactive Protein 10.8 mg/L (0.0-0.9); Calcium 8.6 mg/dL (8.5-10.1); Potassium 4.1 mmoL/L (3.5-5.1)
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
--- NOTE | 2019-01-13 14:29 | Progress Note ---
Internal Medicine - PN: Subj *Date: 01/13/19 *Time: 14:28 Exam Vital signs and Labs for Last 24 Hours: Temp Pulse Resp BP Pulse Ox 97.5 F L 86 17 129/84 95 01/13/19 07:37 01/13/19 07:37 01/13/19 07:37 01/13/19 07:37 01/13/19 08:00 Laboratory Results - last 24 hr 01/13/19 06:15: WBC 9.9, RBC 3.49 L, Hgb 10.9 L, Hct 31.3 L, MCV 89.7, MCH 31.3 H, MCHC 34.9, RDW 12.9, Plt Count 448 H, MPV 7.6, Neut % (Auto) 72.2, Lymph % (Auto) 17.2, [place] % (Auto) 9.3, Eos % (Auto) 0.9, Baso % (Auto) 0.4, Neut # (Auto) 7.1, Lymph # (Auto) 1.7, [place] # (Auto) 0.9, Eos # (Auto) 0.1, Baso # (Auto) 0.0 01/13/19 06:15: Sodium 137, Potassium 4.1, Chloride 100, Carbon Dioxide 29, Anion Gap 12.1, BUN 10, Creatinine 1.03, Estimated Creat Clear 116, Estimated GFR 76, Est GFR ( Amer) 92, Glucose 103, Calcium 8.6, C-Reactive Protein 10.8 H I & O for Last 24 hours: Intake & Output 01/10/19 01/11/19 01/12/19 01/13/19 23:59 23:59 23:59 23:59 Intake Total 785 / 785 3143 / 3143 1618 / 1618 2515 / 2515 Output Total 1070 / 1070 1000 / 1000 2775 / 2775 1850 / 1850 Balance -285 / -285 2143 / 2143 -1157 / -1157 665 / 665 Weight 88.167 kg 88.507 kg 95.793 kg 95.793 kg Microbiology Reports for the Last 24 Hours: Microbiology 01/11/19 11:18 Synovial Fluid - Deep Gram Stain - Final 01/11/19 11:18 Synovial Fluid - Deep Body Fluid Culture - Preliminary NO GROWTH AFTER 48 HOURS 01/11/19 11:18 Knee,Left - Deep Gram Stain - Final 01/11/19 11:18 Knee,Left - Deep Surgical Biopsy Culture - Preliminary NO GROWTH AFTER 48 HOURS 01/11/19 11:18 Leg,Left - Wound Gram Stain - Final 01/11/19 11:18 Leg,Left - Wound Wound Culture - Preliminary NO GROWTH AFTER 48 HOURS 01/11/19 11:18 Leg,Left - Wound Gram Stain - Final 01/11/19 11:18 Leg,Left - Wound Wound Culture - Preliminary NO GROWTH AFTER 48 HOURS 01/10/19 Unknown Synovial Fluid Gram Stain - Final 01/10/19 Unknown Synovial Fluid Body Fluid Culture - Preliminary NO GROWTH AFTER 48 HOURS Assessment and Plan (1) Fracture, tibial plateau Current visit: No Status: Acute Qualifiers: Encounter type: initial encounter Fracture type: closed Laterality: left Qualified Code(s): S82.142A - Displaced bicondylar fracture of left tibia, initial encounter for closed fracture Category: Medical Code(s): S82.143A - Displaced bicondylar fracture of unspecified tibia, initial encounter for closed fracture (2) Cellulitis Current visit: Yes Status: Acute Category: Medical Code(s): L03.90 - Cellulitis, unspecified The patient's infection will respond to the chosen ABx?: Yes Is the patient receiving the right drug, dose, and route?: Yes Could a more targeted ABx be ordered?: No
[2019-01-14 06:02] LABS: Basophils # 0.1 K/mm3 (0-0.2); Basophils % 0.5 % (0.1-2.0); Eosinophils # 0.1 K/mm3 (0.0-0.4); Eosinophils % 1.2 % (0.1-12.0); Hemoglobin 10.7 g/dL (14.1-18.0); Lymphocytes # 2.4 K/mm3 (0.7-4.5); Lymphocytes % 21.1 % (10-50); Mean Corpuscular HGB Conc 33.4 g/dL (31.8-35.4); Mean Corpuscular Hemoglobin 29.7 pg (27.0-31.2); Mean Platelet Volume 7.4 fl (7.4-10.4); Monocytes % 8.7 % (1.7-9.3); Neutrophils # 7.8 K/mm3 (1.8-7.8); Neutrophils % 68.5 % (37.0-80.0); Platelet Count 492 K/mm3 (142-424); Red Cell Distribution Width 12.9 % (11.5-17.5); White Blood Count 11.4 K/mm3 (4.8-10.8)
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
--- NOTE | 2019-01-14 10:17 | Discharge Summary ---
General - General Admission date:: 01/10/19 Discharge date: 01/14/19 HPI HPI: 48yo M 1 week s/p ORIF L tibial plateau fracture admitted from clinic this afternoon with increasing erythema around the surgical site despite being on oral Bactrim for the last 5-6 days. He denies fevers or chills at home, no drainage from the incision, but has a foot drop present since surgery. Sensation intact but quality diminished across the dorsum of the foot. He is a heavy smoker, 2-2.5 ppd. Effusion present in the knee, which was aspirated in clinic and sent for cell count, gram stain and culture; aspiration site was medial, far from the surgical incision and prepped with chlorhexidine. Hospital Course Hospital Course: The patient was admitted on 01/10/2019 from clinic and started on vancomycin/zosyn. Initial gram stain of knee aspirate showed GPC and was concerning for infection, so the patient was taken to the OR on 01/11/2019 for arthroscopic washout of the knee joint and open I&D of the surgical wound with antibiotic bead placement. Post-operatively the antibiotics were continued and he did well, with no medical issues during his stay. His WBC and CRP started to improve, he remained afebrile, and by POD 3 both clinic aspirate cultures and intra-operative cultures remained negative, so he was discharged home on oral clindamycin and bactrim DS. Objective Vital signs: Temp Pulse Resp BP Pulse Ox 97.9 F 81 16 126/77 95 01/14/19 08:00 01/14/19 08:00 01/14/19 08:00 01/14/19 08:00 01/14/19 08:00 - *Routine Extremities Exam Comments: AAOx3, NAD surgical dressings c/d/i, knee immobilizer in place no strikethrough on dressings persistent foot drop LLE; foot held in neutral position with posterior orthoglass splint dressings removed, cellulitis around anterior ankle resolved arthroscopic portal incisions c/d/i, sutures intact lateral incision intact, no erythema but purpulish discoloration/possible congestion/induration; wound margins dusky but no necrosis, no drainage palpable pedal pulses LLE SILT distally LLE Results Completed studies during hospitalization [Text1]: CBC, BMP, CRP, ESR + ankle XR Labs on day of discharge: Labs from last 24 hours 01/14/19 01/14/19 01/13/19 05:30 05:30 16:30 WBC 11.4 H RBC 3.60 L Hgb 10.7 L Hct 32.0 L MCV 89.0 MCH 29.7 MCHC 33.4 RDW 12.9 Plt Count 492 H MPV 7.4 Neut % (Auto) 68.5 Lymph % (Auto) 21.1 [place] % (Auto) 8.7 Eos % (Auto) 1.2 Baso % (Auto) 0.5 Neut # (Auto) 7.8 Lymph # (Auto) 2.4 [place] # (Auto) 1.0 Eos # (Auto) 0.1 Baso # (Auto) 0.1 C-Reactive Protein 9.0 H Vancomycin Trough 15.2 Preliminary micro results at discharge 01/10/19 Unknown Body Fluid Culture - Preliminary Synovial Fluid NO GROWTH AFTER 72 HOURS 01/11/19 11:18 Body Fluid Culture - Preliminary Synovial Fluid - Deep NO GROWTH AFTER 48 HOURS 01/11/19 11:18 Surgical Biopsy Culture - Preliminary Knee,Left - Deep NO GROWTH AFTER 48 HOURS 01/11/19 11:18 Wound Culture - Preliminary Leg,Left - Wound NO GROWTH AFTER 48 HOURS 01/11/19 11:18 Wound Culture - Preliminary Leg,Left - Wound NO GROWTH AFTER 48 HOURS DS: Diagnosis - Discharge Diagnosis (1) Fracture, tibial plateau Status: Acute (2) Cellulitis Status: Acute Discharge Plan - Patient Discharge Instructions ACTIVITY: Up with assistance, Other (NWB LLE with knee immobilizer and walker ) DIET: continue same diet Additional Instructions: NWB LLE with knee immobilizer and walker do not remove dressings/splint elevate the LLE frequently, with the knee above the level of the heart may ice PRN, 20min at a time, 3-4 times daily take antibiotics as prescribed pain Rx given, to be filled when current Rx runs out nicotine patch Rx given, strongly encourage smoking cessation continue regular diet f/u with Dr. Barraza tomorrow, 01/15/2019 (office will call with appointment time) -- will want to have labs drawn prior to visit, office will provide this information Patient Instructions: DI for Cellulitis -- Adult, DI for Surgical Site Infection, DI for Incision and Drainage - Follow up Plan Follow up with: Lalita Barraza MD [Staff Physician] - 1 day Disposition: Home, Self-Residential Medications: Home Medications Medication Instructions Recorded Confirmed Type sulfamethoxazole 800 1 tab PO DAILY 7 Days #7 tab 01/05/19 01/10/19 Rx mg-trimethoprim 160 mg tablet Oxycodone HCl/Acetaminophen 1 - 2 tab PO Q6H PRN 01/11/19 01/11/19 History [Percocet 5/325mg tablet] Clindamycin HCl [Cleocin HCl] 300 mg PO Q6 10 Days #40 cap 01/14/19 Rx Nicotine [Nicoderm 21mg/24hr 21 mg TD DAILYP PRN #14 patch.[id number] 01/14/19 Rx patch] Oxycodone HCl/Acetaminophen 1 each PO Q6HP PRN #30 tab 01/14/19 Rx [Percocet 5/325mg tablet] Sulfamethoxazole/Trimethoprim 1 each PO BID 10 Days #20 tab 01/14/19 Rx [Bactrim DS tablet] Prescriptions/Medication Reconciliation: New Oxycodone HCl/Acetaminophen [Percocet 5/325mg tablet] 1 each PO Q6HP PRN #30 tab PRN Reason: Moderate To Severe Pain Clindamycin HCl [Cleocin HCl] 300 mg PO Q6 10 Days #40 cap Nicotine [Nicoderm 21mg/24hr patch] 21 mg TD DAILYP PRN #14 patch.td24 PRN Reason: Nicotine Cravings Sulfamethoxazole/Trimethoprim [Bactrim DS tablet] 1 each PO BID 10 Days #20 tab Continued Oxycodone HCl/Acetaminophen [Percocet 5/325mg tablet] 1 - 2 tab PO Q6H PRN PRN Reason: Moderate To Severe Pain Discontinued sulfamethoxazole 800 mg-trimethoprim 160 mg tablet 1 tab PO DAILY 7 Days #7 tab
--- NOTE | 2019-01-14 11:33 | Progress Note ---
Internal Medicine - PN: Subj *Date: 01/14/19 *Time: 11:32 Exam Vital signs and Labs for Last 24 Hours: Temp Pulse Resp BP Pulse Ox 97.9 F 81 16 126/77 95 01/14/19 08:00 01/14/19 08:00 01/14/19 08:00 01/14/19 08:00 01/14/19 08:00 Laboratory Results - last 24 hr 01/13/19 16:30: Vancomycin Trough 15.2 01/14/19 05:30: WBC 11.4 H, RBC 3.60 L, Hgb 10.7 L, Hct 32.0 L, MCV 89.0, MCH 29.7, MCHC 33.4, RDW 12.9, Plt Count 492 H, MPV 7.4, Neut % (Auto) 68.5, Lymph % (Auto) 21.1, [place] % (Auto) 8.7, Eos % (Auto) 1.2, Baso % (Auto) 0.5, Neut # (Auto) 7.8, Lymph # (Auto) 2.4, [place] # (Auto) 1.0, Eos # (Auto) 0.1, Baso # (Auto) 0.1 01/14/19 05:30: C-Reactive Protein 9.0 H I & O for Last 24 hours: Intake & Output 01/11/19 01/12/19 01/13/19 01/14/19 23:59 23:59 23:59 23:59 Intake Total 3143 / 3143 1618 / 1618 2635 / 2635 480 / 480 Output Total 1000 / 1000 2775 / 2775 3525 / 3525 1700 / 1700 Balance 2143 / 2143 -1157 / -1157 -890 / -890 -1220 / -1220 Weight 88.507 kg 95.793 kg 95.793 kg 95.765 kg Microbiology Reports for the Last 24 Hours: Microbiology 01/10/19 Unknown Synovial Fluid Gram Stain - Final 01/10/19 Unknown Synovial Fluid Body Fluid Culture - Preliminary NO GROWTH AFTER 72 HOURS 01/11/19 11:18 Synovial Fluid - Deep Gram Stain - Final 01/11/19 11:18 Synovial Fluid - Deep Body Fluid Culture - Preliminary NO GROWTH AFTER 48 HOURS 01/11/19 11:18 Knee,Left - Deep Gram Stain - Final 01/11/19 11:18 Knee,Left - Deep Surgical Biopsy Culture - Preliminary NO GROWTH AFTER 48 HOURS 01/11/19 11:18 Leg,Left - Wound Gram Stain - Final 01/11/19 11:18 Leg,Left - Wound Wound Culture - Preliminary NO GROWTH AFTER 48 HOURS 01/11/19 11:18 Leg,Left - Wound Gram Stain - Final 01/11/19 11:18 Leg,Left - Wound Wound Culture - Preliminary NO GROWTH AFTER 48 HOURS Assessment and Plan (1) Fracture, tibial plateau Current visit: No Status: Acute Qualifiers: Encounter type: initial encounter Fracture type: closed Laterality: left Qualified Code(s): S82.142A - Displaced bicondylar fracture of left tibia, initial encounter for closed fracture Category: Medical Code(s): S82.143A - Displaced bicondylar fracture of unspecified tibia, initial encounter for closed fracture (2) Cellulitis Current visit: Yes Status: Acute Category: Medical Code(s): L03.90 - Cellulitis, unspecified The patient's infection will respond to the chosen ABx?: Yes Is the patient receiving the right drug, dose, and route?: Yes Could a more targeted ABx be ordered?: No (HOME ON CLINDAMYCIN AND BACTRIM DS FOR INFECTION PROPHYLAXIS)
== END 2019-01-14 11:49 | disposition home or self-care (01) | DRG 509 ==
LOC: RAD 13:00 → 2ND 14:09
PROVIDERS: ADMIT Orthopaedic Surgery; ATTEND Orthopaedic Surgery
CPT/HCPCS: 36415; 73564; 73610; 80048; 80053; 80202; 85025; 85651; 86140; 87070; 87075; 87205; A4649; J2405; J2543; J3370

== ENCOUNTER → 2019-01-15 13:34 | Outpatient (CLI) | payer OTHER, SELFPAY ==
[2019-01-15 14:14] LABS: Basophils # 0.1 K/mm3 (0-0.2); Basophils % 0.6 % (0.1-2.0); Eosinophils # 0.2 K/mm3 (0.0-0.4); Eosinophils % 1.4 % (0.1-12.0); Hematocrit 35.3 % (42.0-52.0); Hemoglobin 11.6 g/dL (14.1-18.0); Lymphocytes # 2.2 K/mm3 (0.7-4.5); Lymphocytes % 21.3 % (10-50); Mean Corpuscular HGB Conc 32.9 g/dL (31.8-35.4); Mean Corpuscular Hemoglobin 29.4 pg (27.0-31.2); Mean Corpuscular Volume 89.5 fl (80-94); Mean Platelet Volume 7.3 fl (7.4-10.4); Monocytes # 0.9 K/mm3 (0.1-1.0); Monocytes % 8.4 % (1.7-9.3); Neutrophils # 7.1 K/mm3 (1.8-7.8); Neutrophils % 68.3 % (37.0-80.0); Platelet Count 614 K/mm3 (142-424); Red Blood Count 3.94 M/mm3 (4.60-6.20); Red Cell Distribution Width 12.8 % (11.5-17.5); White Blood Count 10.4 K/mm3 (4.8-10.8)
[2019-01-15 15:23] LABS: Erythrocyte Sedimentation Rate > 120 mm/hr (0-15)
[2019-01-15 15:25] LABS: C-Reactive Protein 7.2 mg/L (0.0-0.9)
== END ==
PROVIDERS: Visit Provider Orthopaedic Surgery
DX: S82.143A Displaced bicondylar fracture of unspecified tibia, initial encounter for closed fracture (principal)
CPT/HCPCS: 36415; 85025; 85651; 86140

== ENCOUNTER → 2019-01-18 08:50 | Outpatient (CLI) | payer OTHER, SELFPAY ==
[2019-01-18 09:21] LABS: Basophils # 0.1 K/mm3 (0-0.2); Basophils % 0.8 % (0.1-2.0); Eosinophils # 0.2 K/mm3 (0.0-0.4); Eosinophils % 1.7 % (0.1-12.0); Hematocrit 37.9 % (42.0-52.0); Hemoglobin 12.2 g/dL (14.1-18.0); Lymphocytes # 2.4 K/mm3 (0.7-4.5); Lymphocytes % 27.3 % (10-50); Mean Corpuscular HGB Conc 32.3 g/dL (31.8-35.4); Mean Corpuscular Volume 89.9 fl (80-94); Mean Platelet Volume 7.1 fl (7.4-10.4); Monocytes # 0.7 K/mm3 (0.1-1.0); Monocytes % 8.2 % (1.7-9.3); Neutrophils # 5.5 K/mm3 (1.8-7.8); Neutrophils % 62.1 % (37.0-80.0); Platelet Count 701 K/mm3 (142-424); Red Blood Count 4.22 M/mm3 (4.60-6.20); White Blood Count 8.9 K/mm3 (4.8-10.8)
== END ==
PROVIDERS: Visit Provider Orthopaedic Surgery
DX: S82.143A Displaced bicondylar fracture of unspecified tibia, initial encounter for closed fracture (principal)
CPT/HCPCS: 36415; 85025; 86140

== ENCOUNTER → 2019-01-22 09:12 | Outpatient (CLI) | payer OTHER, SELFPAY ==
[2019-01-22 09:33] LABS: Basophils # 0.1 K/mm3 (0-0.2); Basophils % 0.8 % (0.1-2.0); Eosinophils # 0.1 K/mm3 (0.0-0.4); Eosinophils % 1.5 % (0.1-12.0); Hematocrit 36.1 % (42.0-52.0); Hemoglobin 12.2 g/dL (14.1-18.0); Lymphocytes # 3.1 K/mm3 (0.7-4.5); Lymphocytes % 34.9 % (10-50); Mean Corpuscular HGB Conc 33.8 g/dL (31.8-35.4); Mean Corpuscular Hemoglobin 29.8 pg (27.0-31.2); Mean Corpuscular Volume 88.2 fl (80-94); Mean Platelet Volume 7.2 fl (7.4-10.4); Monocytes # 0.8 K/mm3 (0.1-1.0); Monocytes % 8.5 % (1.7-9.3); Neutrophils # 4.8 K/mm3 (1.8-7.8); Neutrophils % 54.3 % (37.0-80.0); Platelet Count 495 K/mm3 (142-424); Red Blood Count 4.09 M/mm3 (4.60-6.20); Red Cell Distribution Width 13.1 % (11.5-17.5); White Blood Count 8.9 K/mm3 (4.8-10.8)
[2019-01-22 10:01] LABS: C-Reactive Protein 0.9 mg/L (0.0-0.9)
== END ==
PROVIDERS: Visit Provider Orthopaedic Surgery
DX: S82.143A Displaced bicondylar fracture of unspecified tibia, initial encounter for closed fracture (principal)
CPT/HCPCS: 36415; 85025; 86140

== ENCOUNTER → 2019-01-29 08:32 | Outpatient (CLI) | payer OTHER, SELFPAY ==
--- NOTE | 2019-01-29 08:40 | XR_ITS ---
XR knee LT 4V HISTORY: Follow-up ORIF ITS.REASON: ap, lateral, oblique NON Weightbearing ORDERING PHYSICIAN: Lalita Barraza MD PATIENT AGE: 48 years COMPARISON: 01/10/2019 FINDINGS: Lateral bone plate remains in place stabilizing lateral tibial plateau fracture which is in good alignment. Fracture line is barely visible superiorly. There is some increased density along the subcutaneous tissues laterally consistent with soft tissue calcification. There is some calcification also noted lateral to the tibial bone plate. IMPRESSION: Good alignment status post ORIF lateral tibial plateau fracture Myositis ossificans
[2019-01-29 08:49] LABS: Basophils # 0.1 K/mm3 (0-0.2); Basophils % 0.8 % (0.1-2.0); Eosinophils # 0.2 K/mm3 (0.0-0.4); Eosinophils % 2.1 % (0.1-12.0); Hematocrit 38.6 % (42.0-52.0); Hemoglobin 13.2 g/dL (14.1-18.0); Lymphocytes # 2.7 K/mm3 (0.7-4.5); Lymphocytes % 33.5 % (10-50); Mean Corpuscular HGB Conc 34.2 g/dL (31.8-35.4); Mean Corpuscular Hemoglobin 30.2 pg (27.0-31.2); Mean Corpuscular Volume 88.5 fl (80-94); Mean Platelet Volume 7.6 fl (7.4-10.4); Monocytes # 0.6 K/mm3 (0.1-1.0); Monocytes % 7.2 % (1.7-9.3); Neutrophils # 4.6 K/mm3 (1.8-7.8); Neutrophils % 56.5 % (37.0-80.0); Platelet Count 328 K/mm3 (142-424); Red Blood Count 4.36 M/mm3 (4.60-6.20); Red Cell Distribution Width 13.5 % (11.5-17.5); White Blood Count 8.1 K/mm3 (4.8-10.8)
[2019-01-29 08:52] LABS: C-Reactive Protein 0.5 mg/L (0.0-0.9)
== END ==
PROVIDERS: Visit Provider Orthopaedic Surgery
DX: S82.143A Displaced bicondylar fracture of unspecified tibia, initial encounter for closed fracture (principal)
CPT/HCPCS: 36415; 73564; 85025; 86140

== ENCOUNTER → 2019-02-05 10:08 | Outpatient (CLI) | payer OTHER, SELFPAY ==
--- NOTE | 2019-02-05 10:15 | XR_ITS ---
XR knee LT 4V HISTORY: Follow-up surgery/ORIF ITS.REASON: 4 views NON WB ORDERING PHYSICIAN: Lalita Barraza MD PATIENT AGE: 48 years COMPARISON: 01/29/2019 FINDINGS: Lateral bone plate is present stabilizing the lateral tibial plateau fracture. There is good alignment. Fracture line is still visible superiorly. Heterotopic ossification noted lateral to the bone plate and lateral to the proximal fibula IMPRESSION: No change in good alignment status post ORIF lateral tibial plateau fracture with heterotopic ossification
[2019-02-05 10:36] LABS: Basophils # 0.1 K/mm3 (0-0.2); Basophils % 0.7 % (0.1-2.0); Eosinophils # 0.2 K/mm3 (0.0-0.4); Eosinophils % 1.8 % (0.1-12.0); Hematocrit 38.9 % (42.0-52.0); Lymphocytes # 2.7 K/mm3 (0.7-4.5); Mean Corpuscular HGB Conc 33.6 g/dL (31.8-35.4); Mean Corpuscular Hemoglobin 30.5 pg (27.0-31.2); Mean Corpuscular Volume 90.8 fl (80-94); Mean Platelet Volume 7.8 fl (7.4-10.4); Monocytes # 0.6 K/mm3 (0.1-1.0); Monocytes % 7.3 % (1.7-9.3); Neutrophils # 4.9 K/mm3 (1.8-7.8); Neutrophils % 58.2 % (37.0-80.0); Platelet Count 221 K/mm3 (142-424); Red Blood Count 4.28 M/mm3 (4.60-6.20); White Blood Count 8.4 K/mm3 (4.8-10.8)
[2019-02-05 11:57] LABS: C-Reactive Protein < 0.2 mg/L (0.0-0.9)
== END ==
PROVIDERS: Visit Provider Orthopaedic Surgery
DX: S82.143A Displaced bicondylar fracture of unspecified tibia, initial encounter for closed fracture (principal)
CPT/HCPCS: 36415; 73564; 85025; 86140

== ENCOUNTER → 2019-02-12 09:39 | Outpatient (CLI) | payer OTHER, SELFPAY ==
[2019-02-12 10:02] LABS: Basophils % 0.4 % (0.1-2.0); Eosinophils # 0.1 K/mm3 (0.0-0.4); Eosinophils % 1.6 % (0.1-12.0); Hematocrit 41.2 % (42.0-52.0); Hemoglobin 13.9 g/dL (14.1-18.0); Lymphocytes # 2.3 K/mm3 (0.7-4.5); Lymphocytes % 29.6 % (10-50); Mean Corpuscular HGB Conc 33.8 g/dL (31.8-35.4); Mean Corpuscular Hemoglobin 30.1 pg (27.0-31.2); Mean Platelet Volume 7.7 fl (7.4-10.4); Monocytes # 0.5 K/mm3 (0.1-1.0); Monocytes % 6.6 % (1.7-9.3); Neutrophils # 4.9 K/mm3 (1.8-7.8); Neutrophils % 61.8 % (37.0-80.0); Platelet Count 244 K/mm3 (142-424); Red Blood Count 4.63 M/mm3 (4.60-6.20); Red Cell Distribution Width 14.2 % (11.5-17.5); White Blood Count 7.9 K/mm3 (4.8-10.8)
[2019-02-12 11:03] LABS: C-Reactive Protein < 0.2 mg/L (0.0-0.9)
== END ==
PROVIDERS: Visit Provider Orthopaedic Surgery
DX: S82.143A Displaced bicondylar fracture of unspecified tibia, initial encounter for closed fracture (principal)
CPT/HCPCS: 36415; 85025; 86140

== ENCOUNTER → 2019-02-20 12:43 | Outpatient (CLI) | payer OTHER, SELFPAY ==
--- NOTE | 2019-02-20 12:53 | XR_ITS ---
XR knee LT 4V HISTORY: Follow-up ORIF/fracture ITS.REASON: 4 views NWB ORDERING PHYSICIAN: Lalita Barraza MD PATIENT AGE: 48 years COMPARISON: 02/05/2019 FINDINGS: Status post ORIF lateral tibial plateau fracture. Bone plate remains in place. Fracture line is somewhat less apparent. Heterotopic ossification once again noted laterally. There remains good alignment. IMPRESSION: Status post ORIF lateral tibial plateau fracture with fracture line somewhat less apparent Heterotopic ossification unchanged
[2019-02-20 14:59] LABS: Basophils # 0.1 K/mm3 (0-0.2); Basophils % 0.7 % (0.1-2.0); Eosinophils # 0.1 K/mm3 (0.0-0.4); Eosinophils % 1.8 % (0.1-12.0); Hematocrit 41.6 % (42.0-52.0); Hemoglobin 13.7 g/dL (14.1-18.0); Lymphocytes # 2.5 K/mm3 (0.7-4.5); Lymphocytes % 32.7 % (10-50); Mean Corpuscular Hemoglobin 30.5 pg (27.0-31.2); Mean Corpuscular Volume 92.6 fl (80-94); Mean Platelet Volume 8.4 fl (7.4-10.4); Monocytes # 0.5 K/mm3 (0.1-1.0); Neutrophils # 4.4 K/mm3 (1.8-7.8); Neutrophils % 57.9 % (37.0-80.0); Platelet Count 272 K/mm3 (142-424); Red Cell Distribution Width 14.5 % (11.5-17.5); White Blood Count 7.5 K/mm3 (4.8-10.8)
[2019-02-20 15:22] LABS: C-Reactive Protein < 0.2 mg/L (0.0-0.9)
== END ==
PROVIDERS: Visit Provider Orthopaedic Surgery
DX: S82.143A Displaced bicondylar fracture of unspecified tibia, initial encounter for closed fracture (principal)
CPT/HCPCS: 36415; 73564; 85025; 86140

== ENCOUNTER → 2019-02-26 13:56 | Outpatient (CLI) | payer OTHER, SELFPAY ==
--- NOTE | 2019-02-26 14:03 | XR_ITS ---
XR knee LT 3V HISTORY: Follow-up fracture ITS.REASON: ap, lateral, oblique ORDERING PHYSICIAN: Lalita Barraza MD PATIENT AGE: 48 years COMPARISON: 02/20/2019 FINDINGS: Exams performed with the knee in a brace. There is good alignment. Healing fracture the lateral tibial plateau once again noted not significant change. Lateral bone plate of the proximal tibia is in place. Heterotopic ossification noted as before. IMPRESSION: No change status post ORIF left lateral tibial plateau fracture with good alignment
== END ==
PROVIDERS: Visit Provider Orthopaedic Surgery
DX: S82.143A Displaced bicondylar fracture of unspecified tibia, initial encounter for closed fracture (principal)
CPT/HCPCS: 73562

== ENCOUNTER → 2019-03-12 11:41 | Outpatient (POV) | payer OTHER, SELFPAY | PROVIDERS: Visit Provider Specialist | DX: S82.143A Displaced bicondylar fracture of unspecified tibia, initial encounter for closed fracture (principal); M21.372 Foot drop, left foot; R20.8 Other disturbances of skin sensation | CPT/HCPCS: 95886; 95908 ==

== ENCOUNTER → 2019-03-19 08:36 | Outpatient (CLI) | payer OTHER, SELFPAY ==
--- NOTE | 2019-03-19 08:44 | XR_ITS ---
XR knee LT 3V HISTORY: ITS.REASON: post op ORDERING PHYSICIAN: Lalita Barraza MD PATIENT AGE: 48 years COMPARISON: 02/26/2019. FINDINGS: Degenerative changes involving the medial compartment are stable. The orthopedic hardware involving the proximal tibia appears to be intact and stable. There is no acute fracture. There are some stable superficial linear calcific densities involving the lateral aspect at the level of the proximal fibula. This is likely degenerative and stable. There is no acute fracture or definite joint effusion. Impression: Stable postoperative findings. No other change or acute process.
== END ==
PROVIDERS: Visit Provider Orthopaedic Surgery
DX: S82.142A Displaced bicondylar fracture of left tibia, initial encounter for closed fracture (principal)
CPT/HCPCS: 73562

== ENCOUNTER → 2019-03-26 14:52 | Outpatient (CLI) | payer OTHER, SELFPAY ==
--- NOTE | 2019-03-26 14:55 | MR_ITS ---
MR pelvis wo con CLINICAL INDICATION: Left foot drop ITS.REASON: Drop foot/recommended by radiologist ORDERING PHYSICIAN: Lalita Barraza MD PATIENT AGE: 48 years Comparison: None TECHNIQUE: Multiplanar multiecho sequences are performed without contrast. FINDINGS: No fracture or dislocation is evident. No abnormal bone marrow signal intensity. No evidence of avascular necrosis of the femoral heads. There is increased T2 signal involving the mid and posterior aspect of the left gluteus minimus. No other significant anomalies are evident. IMPRESSION: 1. Edema of the left gluteus minimus muscle suggesting muscular contusion/strain or even partial tear. A complete muscle tear is not felt to be present. 2. Otherwise negative MRI of the pelvis
--- NOTE | 2019-03-26 14:55 | MR_ITS ---
MR lumbar spine wo con, MR 3-d myelogram/MRCP HISTORY: Drop foot on the left PT fell in December and FX tibia. Knees gave out on patient. PT got drop foot from fall. ITS.REASON: Drop foot ORDERING PHYSICIAN: Lalita Barraza MD PATIENT AGE: 48 years Comparison: None TECHNIQUE: Standard multiplanar multiecho sequences are performed without contrast. 3-D MIP and myelographic images are also rendered and reviewed FINDINGS: Normal alignment. The spinal cord ends at the L1 level. T11-T12: Unremarkable. T12-L1: Unremarkable. L1-L2: Unremarkable. L2-L3: Unremarkable. L3-L4: Mild facet and ligamentum flavum hypertrophic change. L4-5: Bulging disc with facet and ligamentum flavum hypertrophy with mild bilateral lateral recess and foraminal narrowing. L5-S1: Unremarkable. IMPRESSION: 1. No disc herniation or canal stenosis. 2. Mild bulging disc with mild facet and ligamentum hypertrophy at L4-L5 with mild bilateral lateral recess and foraminal narrowing
== END ==
PROVIDERS: Visit Provider Orthopaedic Surgery
DX: M21.372 Foot drop, left foot (principal)
CPT/HCPCS: 72148; 72195; 76376

== ENCOUNTER → 2019-04-09 10:23 | Outpatient (CLI) | payer OTHER, SELFPAY ==
--- NOTE | 2019-04-09 10:32 | XR_ITS ---
XR knee LT 3V HISTORY: Follow-up fracture ITS.REASON: left tibial plateau fx ORDERING PHYSICIAN: Lalita Barraza MD PATIENT AGE: 48 years COMPARISON: 03/19/2019 FINDINGS: Status post ORIF lateral tibial plateau fracture. Lateral bone plate with multiple screws once again noted. There is some heterotopic ossification lateral to the fibula.. IMPRESSION: Status post ORIF lateral tibial plateau fracture. Good alignment with no change
== END ==
PROVIDERS: Visit Provider Orthopaedic Surgery
DX: S82.143A Displaced bicondylar fracture of unspecified tibia, initial encounter for closed fracture (principal)
CPT/HCPCS: 73562

== ENCOUNTER 2019-05-03 08:00 | Outpatient (RCR) | payer OTHER, SELFPAY ==
--- NOTE | 2019-01-24 10:55 | HMH.PTOPWND ---
Rehab Outpt Wound Evaluation Rehab OP Wound Evaluation Start: 01/24/19 10:34 Freq: Status: Active Protocol: Document 01/24/19 10:34 LEONEL (Rec: 01/24/19 10:55 LEONEL [id number]) Electronically Signed By Doe Mcdonald, PT 01/24/19 10:34 Subjective/History History History Pt is 48 yowm who presents ~ 2 wks S/P ORIF of tibial plateau fx with increased edema and porr incision healing. He reports increased tenderness and pain throughout the left LE, worse in the ankle due to edema. MD expressed concerns of increased drainage from incision with poor healing likely due to pt being a heavy smoker. He presents today with copious drainage from middle area of the incsions with macerated tissue at wound borders. He also has symptoms of drop foot since his surgery and reports it feels numb despite having full sensation to light touch throughout the left LE. He reports no significant PMH. Wound Eval Wound Left Lateral Knee Wound Type Incision Is This a Chronic Wound No Wound Length (cm) 3.5 Wound Width (cm) 2.2 Wound Bed Appearance Yellow,White,Pale Percentage of Slough (%) 100 Wound Margins Description Macerated Surrounding Tissue Appearance Shiny,Edematous-pitting Edema Type Pitting Edema Degree 3+ Query Text:1+ Trace, Barely Detectable, Rebound 15-30 seconds 2+ Moderate, Slight Indentation, Rebound 10-20 seconds 3+ Deep, Deeper Indentation, Rebound > 30 seconds 4+ Very Deep, Rebound > 60 seconds Edema Appearance Shiny,Puffy Drainage Description Serosanguineous Drainage Amount Copious Drainage Odor No Odor Primary Dressing Silver Dressing Comment [facility] Wound Secondary Dressing Type Absorbant Pad,Gauze Roll/Wrap, Elastic Bandage Wound Debridement Method Gauze,Mechanical Wound Debridement Amount of Tissue Minimal Removed Dressing Change Patient Tolerance Tolerated Well Wound Problems/I
--- NOTE | 2019-03-02 12:37 | HMH.RHREAS ---
Rehab Reassessment Rehab OP Re-assessment Start: 03/02/19 12:28 Freq: Status: Active Protocol: Document 03/02/19 12:29 PHOROCIO (Rec: 03/02/19 12:37 PHORNE [id number]) Electronically Signed By Doe Mcdonald, PT 03/02/19 12:29 Rehab Re-assessment Subjective Subjective Pt with no c/o problems with wound. He does reports soreness in left calf and knee with ROM. Objective Objective Notes Left knee wound: Length= 6.2cm , Width= 0.7cm. Left knee AROM= 6-35 deg PROM = 3-38 deg. Left ankle PROM: DF= -9 deg, PF= 9-45 deg, INV= 0-22 deg, EVER= 0-6 deg MMT Left LE: knee flex/ext 2-/ 5, ankle inv/ever 2/5, ankle PF 4/5, ankle DF 0/5. Assessment Progress Assessment Progressing as Expected Assessment Notes Pt wound healing has progressed well with steady improvements. Pt is not clear by MD for A/PROM and early weightbearing activity per protocol. Patient goals met STG: all Goals Not Met LTG: none Revised Goals STG: Pt will increase Left knee and ankle ROM by 15 deg. Pt will increase Left knee strength to 3/5 throughout LTG: Pt will increase Left knee and ankle ROM by 30 deg Pt will increase Left knee strength to 4/5 throughout Plan Plan Continue per initial POC with addidtional goals as above. Activity per TPF protocol. Frequency of Therapy 2x/wk Duration of therapy 8 wks Time and Billing Re-Eval Time 15 Re-Eval Billing Units 1 PHYSICIAN CERTIFICATION: I certify the specified therapy services for Efrain Paul are required, authorized, and reviewed every 30 days.
== END 2019-06-04 16:35 | disposition home or self-care (01) ==
LOC: PT.CARL 08:00
PROVIDERS: Visit Provider Orthopaedic Surgery
DX: S82.143A Displaced bicondylar fracture of unspecified tibia, initial encounter for closed fracture (principal)
CPT/HCPCS: 97010; 97014; 97110; 97112; 97116; 97140; 97163; 97164; 97597; 97760; G0283

== ENCOUNTER → 2019-05-04 10:35 | Outpatient (CLI) | payer OTHER, SELFPAY ==
--- NOTE | 2019-05-04 10:39 | XR_ITS ---
XR knee LT 3V HISTORY: Follow-up knee manipulation, prior ORIF ITS.REASON: manipulation of lt knee NO SUNRISE ORDERING PHYSICIAN: Lalita Barraza MD PATIENT AGE: 48 years COMPARISON: 04/10/2019 FINDINGS: Status post placement of lateral bone plate stabilizing the lateral tibial plateau fracture with good alignment. There is some ossification noted lateral to the neck of the bone plate. There remains a faint fracture line along the medial aspect of the lateral tibial plateau. Fracture however is less apparent when compared to 04/10/2019. IMPRESSION: Healing lateral tibial plateau fracture with good alignment
== END ==
PROVIDERS: Visit Provider Orthopaedic Surgery
DX: S82.142A Displaced bicondylar fracture of left tibia, initial encounter for closed fracture (principal)
CPT/HCPCS: 73562

== ENCOUNTER → 2019-06-25 08:39 | Outpatient (POV) | payer OTHER, SELFPAY | PROVIDERS: Visit Provider Specialist | DX: M79.662 Pain in left lower leg (principal) ==

== ENCOUNTER → 2019-06-29 09:18 | Outpatient (CLI) | payer SELFPAY ==
--- NOTE | 2019-06-29 09:23 | XR_ITS ---
PROCEDURE: XR KNEE LT 3V CLINICAL INDICATION: Knee pain COMPARISON: 01/10/2019. FINDINGS: There is generalized mild osteopenia. Orthopedic hardware involving proximal tibia in the appearance of the tibia itself is stable. There is no acute fracture. There is still some soft tissue density in the suprapatellar bursa. Joint spaces and alignment are stable. IMPRESSION: Mild osteopenia. Residual small joint effusion. No other change. Dictated by: Farhan Collins 06/29/2019 09:53 Electronically signed by Farhan Collins in [place] 06/29/2019 09:53
== END ==
PROVIDERS: Visit Provider Orthopaedic Surgery
DX: M24.662 Ankylosis, left knee (principal)
CPT/HCPCS: 73562

== ENCOUNTER → 2019-07-30 12:28 | Outpatient (POV) | payer SELFPAY | PROVIDERS: Visit Provider Specialist | DX: M79.605 Pain in left leg (principal); T14.8XXA Other injury of unspecified body region, initial encounter | CPT/HCPCS: 95886; 95909 ==

== ENCOUNTER → 2019-07-30 14:42 | Outpatient (CLI) | payer SELFPAY ==
[2019-07-30 15:16] LABS: Basophils # 0.1 K/mm3 (0-0.2); Basophils % 0.7 % (0.1-2.0); Eosinophils # 0.1 K/mm3 (0.0-0.4); Hematocrit 47.2 % (42.0-52.0); Hemoglobin 15.5 g/dL (14.1-18.0); Lymphocytes # 2.9 K/mm3 (0.7-4.5); Lymphocytes % 31.5 % (10-50); Mean Corpuscular HGB Conc 32.8 g/dL (31.8-35.4); Mean Corpuscular Hemoglobin 30.9 pg (27.0-31.2); Mean Corpuscular Volume 94.2 fl (80-94); Mean Platelet Volume 8.9 fl (7.4-10.4); Monocytes # 0.6 K/mm3 (0.1-1.0); Monocytes % 6.6 % (1.7-9.3); Neutrophils # 5.5 K/mm3 (1.8-7.8); Neutrophils % 60.2 % (37.0-80.0); Platelet Count 235 K/mm3 (142-424); Red Cell Distribution Width 13.9 % (11.5-17.5); White Blood Count 9.2 K/mm3 (4.8-10.8)
[2019-08-01 08:06] LABS: Vitamin B12 232 pg/mL (232-1245)
== END ==
PROVIDERS: Visit Provider Specialist
DX: T14.8XXA Other injury of unspecified body region, initial encounter (principal); G57.00 Lesion of sciatic nerve, unspecified lower limb; M21.372 Foot drop, left foot; M54.30 Sciatica, unspecified side; M54.5 Low back pain
CPT/HCPCS: 36415; 82607; 82746; 85025

== ENCOUNTER → 2019-10-12 13:35 | Outpatient (CLI) | payer OTHER, SELFPAY ==
--- NOTE | 2019-10-12 13:43 | XR_ITS ---
PROCEDURE: XR ANKLE LT MIN 3V CLINICAL INDICATION: ankle pain COMPARISON: No exams were available for comparison FINDINGS: No obvious fracture or dislocation. Mild osteopenia with some striated markings of the distal tibia and talar dome. The joint spaces are well preserved IMPRESSION: No acute findings. Dictated by: Geovanni England MD 10/12/2019 15:32 Electronically signed by Geovanni England MD in [place] 10/12/2019 15:32
--- NOTE | 2019-10-12 13:43 | XR_ITS ---
PROCEDURE: XR KNEE LT 3V CLINICAL INDICATION: tibial plateau fracture Pain, follow-up fracture/ORIF COMPARISON: [id number] XR knee LT 3V from 12/30/2018 [id number] XR knee LT 4V from 01/10/2019 XR KNEE LT 3V from 06/29/2019 FINDINGS: Bone plate is present laterally with multiple screws. There remains good alignment. There is sclerosis at the fracture site of the lateral tibial plateau fracture. Vague fracture line is still visible superiorly. Minimal osteoarthritic changes are present Other findings:None. IMPRESSION: Status post ORIF lateral tibial plateau fracture with healing fracture. Good alignment Dictated by: Geovanni England MD 10/12/2019 15:31 Electronically signed by Geovanni England MD in [place] 10/12/2019 15:31
== END ==
PROVIDERS: Visit Provider Orthopaedic Surgery
DX: S82.143A Displaced bicondylar fracture of unspecified tibia, initial encounter for closed fracture (principal)
CPT/HCPCS: 73562; 73610

== ENCOUNTER → 2019-11-07 08:44 | Outpatient (CLI) | payer OTHER, SELFPAY ==
--- NOTE | 2019-11-07 08:45 | MR_ITS ---
PROCEDURE: MR LUMBAR SPINE WO CON CLINICAL INDICATION: Eval for sciatic nerve entrapment/ATTENTION: PIRIFORMIS Left-sided foot drop, sciatic nerve entrapment TECHNIQUE: Standard multiplanar multiecho sequences are performed without contrast. 3-D MIP and myelographic images are also rendered and reviewed FINDINGS: There is normal alignment. The spinal cord ends at the L1 level. L1-L2 L2-L3 and L3-L4 have an unremarkable appearance. L4-5 shows mild bulging disc with mild facet and ligamentum hypertrophy with mild bilateral lateral recess and foraminal narrowing not significantly changed. L5-S1: Mild facet and ligamentum hypertrophy with mild bilateral foraminal narrowing slightly greater on the left. No disc herniation or canal stenosis. This study does not include the piriformis muscle. MRI of the sacrum would encompass that structure. IMPRESSION: Overall no significant change from 03/26/2019. Mild bulging disc at L4-5 with facet and ligamentum hypertrophy with mild bilateral lateral recess and foraminal narrowing. Mild bilateral foraminal narrowing at L5-S1. No extruded herniated disc or canal stenosis Dictated by: Geovanni England MD 11/08/2019 17:58 Electronically signed by Geovanni England MD in [place] 11/08/2019 17:58
--- NOTE | 2019-11-07 09:56 | XR_ITS ---
PROCEDURE: XR FOOT WT BEARING LT 3V CLINICAL INDICATION: foot drop, ankle pain COMPARISON: [id number] XR foot wt bearing RT 2V from 10/10/2017 XR ANKLE WT BEARING LT MIN 3V from 11/07/2019 FINDINGS: No fracture or dislocation. No lytic or blastic change. There is normal mineralization. The joint spaces are well-preserved. No significant degenerative/arthritic changes. No erosive changes evident. Other findings:There is generalized osteopenia. IMPRESSION: Osteopenia otherwise negative Dictated by: Geovanni England MD 11/07/2019 15:45 Electronically signed by Geovanni England MD in [place] 11/07/2019 15:45
== END ==
PROVIDERS: Visit Provider Specialist
DX: M54.5 Low back pain (principal); R29.898 Other symptoms and signs involving the musculoskeletal system; T14.8XXA Other injury of unspecified body region, initial encounter; M21.372 Foot drop, left foot
CPT/HCPCS: 72148; 73610; 73630; 76376

== ENCOUNTER → 2020-01-28 09:19 | Outpatient (CLI) | payer OTHER, SELFPAY ==
[2020-01-29 17:20] LABS: Vitamin B12 399 pg/mL (232-1245)
== END ==
PROVIDERS: Visit Provider Specialist
DX: E53.8 Deficiency of other specified B group vitamins (principal)
CPT/HCPCS: 36415; 82607

== ENCOUNTER → 2021-03-10 17:38 | Outpatient (CLI) | payer OTHER, SELFPAY ==
[2021-03-10 18:09] LABS: Basophils # 0.1 K/mm3 (0-0.2); Basophils % 0.6 % (0.1-2.0); Eosinophils # 0.1 K/mm3 (0.0-0.4); Eosinophils % 1.5 % (0.1-12.0); Hematocrit 42.3 % (42.0-52.0); Hemoglobin 14.8 g/dL (14.1-18.0); Lymphocytes # 2.8 K/mm3 (0.7-4.5); Lymphocytes % 32.9 % (10-50); Mean Corpuscular HGB Conc 34.9 g/dL (31.8-35.4); Mean Corpuscular Hemoglobin 30.9 pg (27.0-31.2); Mean Corpuscular Volume 88.7 fl (80-94); Mean Platelet Volume 9.1 fl (7.4-10.4); Monocytes # 0.7 K/mm3 (0.1-1.0); Monocytes % 8.4 % (1.7-9.3); Neutrophils # 4.8 K/mm3 (1.8-7.8); Neutrophils % 56.6 % (37.0-80.0); Platelet Count 215 K/mm3 (142-424); Red Blood Count 4.77 M/mm3 (4.60-6.20); Red Cell Distribution Width 13.7 % (11.5-17.5); White Blood Count 8.4 K/mm3 (4.8-10.8)
[2021-03-10 18:25] LABS: Alanine Aminotransferase 32 U/L (12-78); Albumin Level 3.8 g/dl (3.5-5.0); Albumin/Globulin Ratio 1.5 (1.1-1.8); Alkaline Phosphatase 129 U/L (38-126); Anion Gap 9.2 mEq/L (5-15); Aspartate Amino Transferase 52 U/L (17-59); Bilirubin,Total 0.6 mg/dl (0.2-1.3); Blood Urea Nitrogen 13 mg/dl (9-20); Calcium 8.7 mg/dl (8.4-10.2); Carbon Dioxide 25 mmol/L (22.0-30.0); Chloride 107 mmol/L (98-107); Chol/HDL Ratio 6.6 (1-3.5); Cholesterol 244 mg/dl (140-200); Estimated Glomerular Filt Rate 89 ml/min (>60); GFR (African American) 107 ML/MIN (>60); Globulin 2.6 g/dL (1.3-3.2); Glucose 93 mg/dl (74-100); HDL Cholesterol 37 mg/dl (40-60); Potassium 4.2 mmoL/L (3.5-5.1); Sodium 137 mmol/L (136-145); Total Protein,Serum 6.4 g/dl (6.3-8.2)
[2021-03-10 18:37] LABS: Direct LDL Cholesterol 102.86 mg/dL (100-129)
[2021-03-10 18:41] LABS: Triglycerides 443 mg/dl (30-150)
[2021-03-10 18:43] LABS: T4 (Thyroxine) 5.9 ug/dl (5.53-11.0)
[2021-03-10 18:56] LABS: Prostate Specific Ag Screen 0.5 ng/ml (0.0-4.0); Thyroid Stimulating Hormone 1.68 uIU/mL (0.465-4.68)
== END ==
PROVIDERS: Visit Provider Nurse Practitioner Family
DX: Z00.00 Encounter for general adult medical examination without abnormal findings (principal); Z12.5 Encounter for screening for malignant neoplasm of prostate
CPT/HCPCS: 80053; 80061; 84436; 84443; 85025; G0103

== ENCOUNTER → 2022-12-22 09:35 | Outpatient (CLI) | payer MEDICARE, SELFPAY | PROVIDERS: PCP Nurse Practitioner Family; Visit Provider Nurse Practitioner Family | DX: M25.562 Pain in left knee (principal) ==

== ENCOUNTER → 2022-12-22 10:40 | Outpatient (CLI) | payer MEDICARE, SELFPAY ==
--- NOTE | 2022-12-22 10:48 | XR_ITS ---
FINAL REPORT CLINICAL HISTORY: L Knee pain COMPARISON: 10/12/2019 FINDINGS: LEFT KNEE Four views of the left knee were obtained. There are postoperative changes from ORIF of the lateral tibial plateau. The hardware appears intact. There is no fracture or dislocation. There is degenerative joint disease which appears similar to the prior exam. Visualized joint spaces are normally aligned. Soft tissues are unremarkable. IMPRESSION: 1. Postoperative change as above. 2. Degenerative joint disease, appears similar to prior exam. Reviewed, Interpreted and Dictated by Yoana Brito MD Transcribed by Melissa Castro Authenticated and [facility]
[2022-12-22 14:39] LABS: Basophils # 0.1 K/mm3 (0-0.2); Basophils % 0.7 % (0.1-2.0); Eosinophils # 0.2 K/mm3 (0.0-0.4); Eosinophils % 1.4 % (0.1-12.0); Hematocrit 48.7 % (42.0-52.0); Hemoglobin 15.7 g/dL (14.1-18.0); Lymphocytes # 2.7 K/mm3 (0.7-4.5); Lymphocytes % 25.7 % (10-50); Mean Corpuscular HGB Conc 32.3 g/dL (31.8-35.4); Mean Corpuscular Hemoglobin 30.5 pg (27.0-31.2); Mean Corpuscular Volume 94.3 fl (80-94); Mean Platelet Volume 9.9 fl (7.4-10.4); Monocytes # 0.8 K/mm3 (0.1-1.0); Monocytes % 7.9 % (1.7-9.3); Neutrophils # 6.8 K/mm3 (1.8-7.8); Neutrophils % 64.3 % (37.0-80.0); Platelet Count 262 K/mm3 (142-424); Red Blood Count 5.16 M/mm3 (4.60-6.20); Red Cell Distribution Width 13.7 % (11.5-17.5); White Blood Count 10.6 K/mm3 (4.8-10.8)
[2022-12-22 15:02] LABS: Alanine Aminotransferase 30 U/L (12-78); Albumin Level 4.3 g/dl (3.5-5.0); Albumin/Globulin Ratio 1.7 (1.1-1.8); Alkaline Phosphatase 129 U/L (38-126); Aspartate Amino Transferase 30 U/L (17-59); Bilirubin,Total 0.5 mg/dl (0.2-1.3); Blood Urea Nitrogen 9 mg/dl (9-20); Calcium 9.1 mg/dl (8.4-10.2); Carbon Dioxide 24 mmol/L (22.0-30.0); Chloride 102 mmol/L (98-107); Chol/HDL Ratio 7.2 (1-3.5); Cholesterol 287 mg/dl (140-200); Estimated Glomerular Filt Rate 78 ml/min (>60); GFR (African American) 94 ML/MIN (>60); Globulin 2.6 g/dL (1.3-3.2); Glucose 102 mg/dl (74-100); HDL Cholesterol 40 mg/dl (40-60); Sodium 135 mmol/L (136-145); Total Protein,Serum 6.9 g/dl (6.3-8.2); Triglycerides 219 mg/dl (30-150); VLDL Cholesterol 44 mg/dL (0-40)
[2022-12-22 15:12] LABS: Direct LDL Cholesterol 181.57 mg/dL (100-129)
[2022-12-22 15:26] LABS: 25-OH Vitamin D, Total < 12.8 ng/mL (30-100)
[2022-12-22 15:30] LABS: Prostate Specific Ag Screen 0.5 ng/ml (0.0-4.0)
[2022-12-22 15:33] LABS: Thyroid Stimulating Hormone 2.04 uIU/mL (0.465-4.68)
== END ==
PROVIDERS: PCP Nurse Practitioner Family; Visit Provider Nurse Practitioner Family
DX: M25.562 Pain in left knee (principal); I10 Essential (primary) hypertension; R53.83 Other fatigue; Z00.00 Encounter for general adult medical examination without abnormal findings; E55.9 Vitamin D deficiency, unspecified; Z12.5 Encounter for screening for malignant neoplasm of prostate
CPT/HCPCS: 73564; 80053; 80061; 82306; 84443; 85025; G0103

== ENCOUNTER 2024-07-06 06:20 | Day surgery (SDC) | payer MEDICARE, SELFPAY ==
[2024-07-04 12:26] VITALS: BMI 31.0
[2024-07-06 06:43] VITALS: BP 141/88; PULSE 78; RESP 18; TEMP 36.3; O2SAT 96
[2024-07-06] MEDS: LACTATED RINGERS 1000ML 1,000 ML 25 ML IV (06:50)
--- NOTE | 2024-07-06 07:02 | P.PNANES_ITS ---
[facility] Disclaimer: The information contained in this section may have been updated after the patient was seen, as this information can be updated by other users. Medical History History of gastroesophageal reflux (GERD) Surgical History History of surgery on lower extremity Family History Other Diabetes Social History Smoking Status: Current every day smoker tobacco type: cigarettes packs per day: 1 alcohol intake: never counseling provided: none substance use type: denies use current occupational status: disabled Travel in the last 8 weeks: None household members: none housing: house current occupation: [employer] current occupational exposures/hazards: No caffeine: Yes [facility] Anesthesia Checklist Patient Identification Patient Identification: Arm Band and Family Structural Data Admitted From: Home Planned Operative Procedure/s: Colonoscopy Consent for Planned Operative Procedure(s) Verified: Yes Verified Documents: Surgical Consent and History and Physical NPO Status Verified Time NPO: 00:00 Additional verifications Patient : No Anesthesia Reactions: No Hx Blood Transfusions: No Blood Transfusion Reaction: No Cephalosporin Allergy: No Previous Colonoscopy: No Airway Assessment Mallampati Score:: Class II C-Spine Mobility Assessed: Yes Dentition: Good Dentition Neurological Assessment Level of Consciousness: Awake, Alert, Appropriate and Follows Commands Hx Seizures: No Numbness or tingling in extremities: No Anesthesia Plan Anesthesia Risk discussed: Yes ASA Class: II Anesthesia Type: MAC Preoperative Comments Pre-Operative Comments: smoker
--- NOTE | 2024-07-06 07:15 | HMH.SCOPE ---
Procedure: Date: 07/06/24 Patient Date of :: 1970 Procedure Performed:: Total colonoscopy to terminal ileum with polypectomy using snare and biopsy forceps Indications:: Patient is a diabled 53-year-old male referred for initial screening colonoscopy. Performing Provider:: Xavier Figueroa MD Referring Provider:: John Avila Sedation:: MAC sedation Procedure:: Patient history was obtained and appropriate physical examination was performed. Patient's medications and allergies were reviewed. Informed consent was obtained after explaining the benefits, alternatives, and risks of the procedure including, but not limited to, bleeding, perforation, missed lesions, and adverse reaction to anesthesia medications. Patient was transported to endoscopy procedure room. Patient was connected to monitoring devices. Throughout the procedure the patient's blood pressure, pulse, and oxygen saturations were monitored continuously. Patient identification and planned procedure were verified by the staff. Patient was positioned in lateral decubitus position. Digital anorectal exam was performed. Variable stiffness Olympus colonoscope was inserted and advanced under direct visualization to the cecum. Adequacy of the colonic preparation was noted. The colonoscope was advanced a short distance into the terminal ileum. The colonoscope was then slowly withdrawn while carefully examining the color, texture, anatomy, and integrity of the mucosoa circumferentially. Within the rectum retroflexion was performed. Colonoscope was then withdrawn. Impression: There was particulate stool with some undigested vegetable matter throughout the colon. High-volume trans colonoscopic irrigation and suctioning allowed for fair visualization. He had a widely patent appendiceal orifice. Distal to the ileocecal valve there was a moderate adenomatous appearing polyp measuring about 8 mm removed with cold snare. Irrigation and suctioning was performed as surveillance was carried out. In the sigmoid colon there was a diminutive polyp removed with cold snare. In the rectosigmoid region there were multiple hyperplastic appearing polyps a couple of removed with biopsy forceps. . Findings:: Poor to fair colonic preparation Moderate adenomatous appearing ascending polyp Diminutive small sigmoid polyp Multiple hyperplastic appearing rectosigmoid sigmoid polyps Rare diverticulosis Recommendations:: Repeat colonoscopy 1 year given suboptimal preparation and polyps with multi day prep Complications:: None immediately apparent Estimated blood obtained (mL): 1 Colonoscopy Component Colonoscopy Component Was a colonoscopy performed during today's procedure?: Yes Recommended follow up colonoscopy of at least 10 years?: No If no, follow up colonoscopy recommended in ___ years?: 1 Reason for not recommending >/= 10 yr follow-up interval?: See above
[2024-07-06 07:16] VITALS: O2SAT 98
[2024-07-06 07:51] VITALS: BP 83/44; PULSE 69; RESP 14; TEMP 36.8; O2SAT 95
[2024-07-06 08:01] VITALS: BP 84/49; PULSE 67; RESP 14; TEMP 36.8; O2SAT 92
[2024-07-06 08:11] VITALS: BP 100/57; PULSE 72; RESP 14; TEMP 36.8; O2SAT 92
[2024-07-06 08:12] VITALS: BP 117/78; PULSE 69; RESP 14; TEMP 36.8; O2SAT 96
== END 2024-07-06 08:23 | disposition home or self-care (01) ==
PROVIDERS: PCP Nurse Practitioner Family; Visit Provider Surgery
PROC: 0DJD8ZZ Inspection of Lower Intestinal Tract, Via Natural or Artificial Opening Endoscopic (ICD-10-PCS; CPT 45380; principal; 2024-07-06 07:30)
DX: Z12.11 Encounter for screening for malignant neoplasm of colon (principal); K63.5 Polyp of colon; K57.30 Diverticulosis of large intestine without perforation or abscess without bleeding
CPT/HCPCS: 45380; 45385; 88305; J2704; J7120